=== PATIENT | female | born 1945 | race Two or more races ===

== ENCOUNTER 2017-11-05 14:00 | Outpatient (RCR) | payer OTHER ==
[~2017-11-05 14:00] MED LIST: ACETAMINOPHEN500 M3 ORAL; AZOPT10 ML OP; GABAPENTIN100 MG ORAL; GABAPENTIN300 MG ORAL; HYDROCODONE PO; LUMIGAN2.5 ML LEFT EYE; RANITIDINE HCL150 MG ORAL; prednisone
== END 2017-11-07 | disposition home or self-care (01) ==
LOC: PTY 14:00
DX: M54.5 Low back pain (principal)
CPT/HCPCS: 97110; 97161; G0283

== ENCOUNTER 2017-11-17 13:52 | Outpatient (RCR) | payer OTHER | END 2017-12-08 | disposition home or self-care (01) | LOC: PTY 13:52 | DX: M54.5 Low back pain (principal) | CPT/HCPCS: 97110; G0283 ==

== ENCOUNTER 2017-12-14 13:45 | Outpatient (RCR) | payer OTHER | END 2018-01-05 | disposition home or self-care (01) | LOC: PTY 13:45 | DX: M54.5 Low back pain (principal) | CPT/HCPCS: 97110; G0283 ==

== ENCOUNTER 2018-02-02 15:00 | Outpatient (RCR) | payer OTHER | END 2018-02-05 | disposition home or self-care (01) | LOC: PTY 15:00 | DX: M54.5 Low back pain (principal) ==

== ENCOUNTER 2018-02-10 16:05 | Outpatient (RCR) | payer OTHER | END 2018-03-07 | disposition home or self-care (01) | LOC: PTY 16:05 | DX: M54.5 Low back pain (principal) ==